=== PATIENT | female | born 1955 | race Caucasian/White ===

== ENCOUNTER 2017-11-03 21:13 | Emergency (ER) | payer OTHER ==
[~2017-11-03] VITALS: Ht 165.1 cm; Wt 70.0 kg
[2017-11-03] MEDS ORDERED: SODIUM CHLORIDE 0.9% 1,000 ML IV ONE (21:31)
[2017-11-04] MEDS ORDERED: DIPHENHYDRAMINE 50MG/ML VIAL IV ONE (00:15)
[2017-11-04] MEDS ORDERED: METOCLOPRAMIDE HCL 10MG/2ML VIAL IV ONE (00:15)
[2017-11-04] MEDS ORDERED: KETOROLAC 15MG/ML VIAL IV ONE (00:15)
[2017-11-04] MEDS ORDERED: IBUPROFEN 800MG TABLET PO ONE ×2 (00:45→01:30)
[2017-11-04] MEDS ORDERED: PROCHLORPERAZINE MALEATE 10MG TABLET PO ONE ×2 (00:45→01:30)
[2017-11-04] MEDS ORDERED: DIPHENHYDRAMINE 25MG CAPSULE PO ONE ×2 (00:45→01:30)
[2017-11-04] MEDS ORDERED: TETANUS, DIPHTHERIA, PERTUSSIS VAC/PF 0.5ML (>7YR OLD) IM ONE (01:00)
[2017-11-04 01:34] LABS: BASOPHILS % 0.6 % (0.0-2.0); HEMATOCRIT. 37.9 % (36.0-48.0); HEMOGLOBIN. 12.4 g/dL (12.0-16.0); LYMPHOCYTES % 20.3 % (20.0-50.0); MEAN CORPUSCULAR HEMOGLOBIN 29.7 pg (28.0-32.0); MEAN CORPUSCULAR VOLUME 90.7 fL (81.0-99.0); MEAN PLATELET VOLUME 9.1 fl (7.4-10.4); NEUTROPHILS % 71.1 % (40.0-76.0); PLATELET 300 x1000/uL (130-400); RED BLOOD CELL COUNT 4.18 mill/uL (4.2-5.4); RED CELL DISTRIBUTION WIDTH 12.4 % (11.6-14.6)
[2017-11-04 01:40] LABS: PROTHROMBIN TIME 10.6 sec (9.4-11.6)
[2017-11-04 01:57] LABS: CARBON DIOXIDE 26 mEq/L (21-32); CHLORIDE 106 mEq/L (98-107); TROPONIN I < 0.02 ng/mL (0.00-0.04)
[2017-11-04 02:27] VITALS: BP 123/71
== END 2017-11-04 03:05 | disposition home or self-care (01) ==
LOC: ER 21:43
DX: S06.0X9A Concussion with loss of consciousness of unspecified duration, initial encounter (principal); R55 Syncope and collapse; S00.81XA Abrasion of other part of head, initial encounter; S61.214A Laceration without foreign body of right ring finger without damage to nail, initial encounter; Z86.73 Personal history of transient ischemic attack (TIA), and cerebral infarction without residual deficits; V43.52XA Car driver injured in collision with other type car in traffic accident, initial encounter; Y93.89 Activity, other specified; Y92.488 Other paved roadways as the place of occurrence of the external cause
CPT/HCPCS: 36415; 70450; 71010; 72125; 72170; 80053; 83690; 84484; 85025; 85610; 90471; 90715; 93005; 99285; Z7610; 96372; J7030; Q0163; Q0164